=== PATIENT | female | born 1995 | race Caucasian/White ===

== ENCOUNTER 2018-05-22 12:45 | Emergency (ER) | payer MEDICAID ==
[2018-05-22] MEDS ORDERED: SODIUM CHLORIDE 0.9% 1,000 ML IV ONE (13:24)
[2018-05-22] MEDS ORDERED: ONDANSETRON 4 MG/2 ML VIAL IVP STA (13:24)
[2018-05-22 13:35] LABS: Basophils % (A) 0 %; Eosinophils % (A) 0 %; HCT 45.8 % (34.0-46.0); HGB 14.5 gm/dL (11.4-16.0); Lymphocytes % (A) 15 %; MCH 25.6 pg (25.0-35.0); MCHC 31.7 g/dL (31.0-37.0); MCV 80.7 fL (80.0-100.0); Mean Platelet Volume 7.2; Monocytes # (A) 0.5 k/uL (0-1.0); Monocytes % (A) 8 %; Neutrophils # (A) 5.3 k/uL (1.3-7.7); Neutrophils % (A) 75 %; Platelet Count 253 k/uL (150-450); RBC 5.68 m/uL (3.80-5.40); RDW 12.7 % (11.5-15.5); WBC 7.1 k/uL (3.8-10.6)
[2018-05-22 13:45] LABS: ALT 27 U/L (9-52); AST 16 U/L (14-36); Albumin 4.7 g/dL (3.5-5.0); Alkaline Phosphatase 89 U/L (38-126); Amylase 44 U/L (30-110); Anion Gap 14 mmol/L; Blood Urea Nitrogen 14 mg/dL (7-17); Calcium 9.7 mg/dL (8.4-10.2); Carbon Dioxide 25 mmol/L (22-30); Chloride 101 mmol/L (98-107); Glucose 157 mg/dL (74-99); Lipase 24 U/L (23-300); Potassium 3.4 mmol/L (3.5-5.1); Sodium 140 mmol/L (137-145); Total Bilirubin 0.5 mg/dL (0.2-1.3)
[2018-05-22] MEDS ORDERED: MORPHINE SULFATE 2 MG/ML SYRINGE IVP STA (13:56)
--- NOTE | 2018-05-22 14:39 | CT ---
EXAMINATION TYPE: CT abdomen pelvis w con DATE OF EXAM: 05/22/2018 COMPARISON: NONE HISTORY: 23-year-old female with bilateral lower quad pain TECHNIQUE: Contiguous axial scanning of the abdomen and pelvis following administration of 100 ml Iso boyd 300 IV contrast. Delayed images through the kidneys and coronal/sagittal reconstructions perform ed. CT DLP: 497.2 mGycm Automated exposure control for dose reduction was used. FINDINGS: Heart normal size without pericardial effusion. Lung bases clear without pleural effusion. No focal liver lesion or biliary ductal dilatation. Portal venous system is patent. Gallbladder, adrenal glands, kidneys, spleen, and pancreas appear within normal limits. No dilated small bowel, free fluid, or free air. Normal appendix. Numerous nonenlarged and borderline to mildly enlarged periportal lymph nodes are present throughout measuring up to 8 mm, refer to coronal images 28 through 32 for some reference examples. There is significant stool burden. Abdominal bowel loops in the lower abdomen and pelvis limits asses sment. Moderate circumferential wall thickening of the bladder. Uterus and both ovaries are visualized with follicular change. Small amount of cul-de-sac free fluid likely physiologic. Pelvic phlebolith. No pe lvic lymphadenopathy seen. Bones: No osseous destructive process. IMPRESSION: 1. NORMAL APPENDIX. 2. NUMEROUS NONENLARGED AND BORDERLINE TO MILDLY ENLARGED MESENTERIC LYMPH NODES MEASURING UP TO 8 MM MAY REPRESENT MESENTERIC ADENITIS. 3. MODERATE CIRCUMFERENTIAL BLADDER WALL THICKENING. CORRELATE TO EXCLUDE CYSTITIS. 4. TRACE CUL-DE-SAC FREE FLUID LIKELY PHYSIOLOGIC.
[2018-05-22 15:38] LABS: Appearance,Urine Clear (Clear); Bilirubin,Urine Negative (Negative); Blood,Urine Negative (Negative); Color,Urine Light Yellow; Glucose,Urine (UA) Negative (Negative); Ketones,Urine 3+ (Negative); Leukocyte Esterase,Urine Negative (Negative); Nitrite,Urine Negative (Negative); Protein,Urine Trace (Negative); Urobilinogen,Urine <2.0 mg/dL (<2.0)
[2018-05-22 15:42] LABS: Specific Gravity,Urine >1.050 (1.001-1.035)
--- NOTE | 2018-05-22 15:51 | ED ---
Abdominal Pain HPI - General Chief Complaint: Abdominal Pain Stated Complaint: Abd pain Time Seen by Provider: 05/22/18 13:10 Source: patient Mode of arrival: ambulatory Limitations: no limitations - History of Present Illness Initial Comments: 23-year-old female type 1 diabetes on insulin pump present today for chief complaint of diffuse abdominal pain. Patient states that about 2-3 days prior she had a gastroenteritis-like syndrome. She states she had vomiting as well as diarrhea. Patient states that since she has had decreased appetite. Patient states she had a day without vomiting or diarrhea however today she awoke with diffuse abdominal pain, she states the pain increases with any Movement this was concerning patient presents urgent care for evaluation. Remaining review of systems negative patient denies any fever, chills, night sweats, hematemesis, melena or hematochezia, urgency, frequency, dysuria, flank pain, back pain, headache, dizziness, chest pain, dyspnea. Patient states she is currently nauseous she states her blood glucose was 152 this a.m. she denies significant elevation. Patient states that 2-3 days of vomiting diarrhea she had low blood sugar readings. Last time patient she ate was 2 days prior patient presented initially to [facility], where she was sent to the emergency department after urinalysis revealed ketones.Upon arrival patient complaining of diffuse abdominal pain, unable to localize and nausea. VS WNL. - Related Data Home Medications Medication Instructions Recorded Confirmed INSULIN LISPRO (For Pump) [humaLOG 0.01 units SQ-PUMP CONTINUOUS 05/22/1810/03 (For Pump)] Previous Rx's Medication Instructions Recorded Ondansetron [Zofran ODT] 4 mg PO Q8HR PRN 5 Days #15 tab 05/22/18 Allergies Allergy/AdvReac Type Severity Reaction Status Date / Time bee venom protein (honey bee) Allergy Anaphylaxis Verified 05/22/18 13:27 Review of Systems ROS Statement: Those systems with pertinent positive or pertinent negative responses have been documented in the HPI. ROS Other: All systems not noted in ROS Statement are negative. Past Medical History Past Medical History: Diabetes Mellitus Additional Past Medical History / Comment(s): ovarian cysts History of Any Multi-Drug Resistant Organisms: None Reported Past Surgical History: Ear Surgery Past Psychological History: Anxiety, Depression Smoking Status: Never smoker Past Alcohol Use History: None Reported Past Drug Use History: None Reported General Exam - General Exam Comments Initial Comments: General: The patient is awake and alert, in no distress, and does not appear acutely ill. Eye: Pupils are equal, round and reactive to light, extra-ocular movements are intact. No nystagmus. There is normal conjunctiva bilaterally. No signs of icterus. Ears, nose, mouth and throat: There are moist mucous membranes and no oral lesions. Neck: The neck is supple, there is no tenderness or JVD. Cardiovascular: There is a regular rate and rhythm. No murmur, rub or gallop is appreciated. Respiratory: Lungs are clear to auscultation, respirations are non-labored, breath sounds are equal. No wheezes, stridor, rales, or rhonchi. Gastrointestinal: No noted diaphoresis, jaundice, pallor, protecting postures or squirming. Symmetrical pigmentation of abdomen without signs of inflammation. Umbilicus mildline, inverted without swelling. No dilated veins. Abdomen contour , no noted abdominal distention. No visible masses. No peristalsis, aortic pulsations, or ventral hernia. Bowel sounds audible in all 4 quadrants, unremarkable. Patient has tenderness to deep palpation diffusely no localization. No rigidity or guarding or rebound tenderness. Liver edge, not palpable. Spleen edge, right and left kidney not palpable. Superior bladder margin non-tender. Special Testing: NegativeRovsing, McBurney, Genesis, cutaneous hyperesthesia. Negative Heel Jar test No CVA tenderness. Digital rectal exam deferred. Negative gatica turners or cullens sign Musculoskeletal: Normal ROM, no tenderness. Strength 5/5. Sensation intact. Pulses equal bilaterally 2+. Neurological: A&O x 3. CN II-XII intact, There are no obvious motor or sensory deficits. Coordination appears grossly intact. Speech is normal. Skin: Skin is warm and dry and no rashes or lesions are noted. Psychiatric: Cooperative, appropriate mood & affect, normal judgment. Limitations: no limitations Course Vital Signs 05/22/18 05/22/18 05/22/18 12:57 14:41 16:29 Temperature 97.9 F 98.2 F Pulse Rate 105 H 94 87 Respiratory 18 18 16 Rate Blood Pressure 131/87 117/68 128/78 O2 Sat by Pulse 99 100 98 Oximetry Medical Decision Making - Medical Decision Making 23-year-old fellow type 1 diabetes. Patient's sugar 159. Ketones in urine, no glucose. Acetone negative. Gap 14. Patient improved pain with morphine. Abdominal exam did not reveal any signs of peritoneal irritation. CT the abdomen negative did reveal mesenteric adenitis. Possible findings of cystitis, no leukocyte esterase or nitrates upon urinalysis. Patient denies any significant elevation of blood glucose. At this time I feel the patient's ketones appear most likely to not eating for the past 2 days, there is no glucose. Gap within acceptable limits with (-) Acetone. Patient had improvement of symptoms. Repeat abdominal exam performed continued to be benign. At this time feel patient mesenteric adenitis due to gastroenteritis 2- 3 days prior most likely cause of patient's pain. Patient given strict return parameters for any worsening symptoms or persistent pain. Patient verbalized understanding. 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 Patient is to follow-up with primary care provider one to 2 days. Patient denies questions upon discharge. Patient given Zofran ODT to use for nausea, no pain medications given for home RX. Case was discussed with her provider Dr. Webb laboratory studies as well as patient's vital signs I discussed history of presenting illness,Past medical history and examination findings. He is agreeable patient's plan of discharge. Patient appeared well in no acute distress upon discharge. - Lab Data Result diagrams: 05/22/18 13:10 05/22/18 13:10 Lab Results 05/22/18 05/22/18 05/22/18 Range/Units 13:10 13:10 13:10 WBC 7.1 (3.8-10.6) k/uL RBC 5.68 H (3.80-5.40) m/uL Hgb 14.5 (11.4-16.0) gm/dL Hct 45.8 (34.0-46.0) % MCV 80.7 (80.0-100.0) fL MCH 25.6 (25.0-35.0) pg MCHC 31.7 (31.0-37.0) g/dL RDW 12.7 (11.5-15.5) % Plt Count 253 (150-450) k/uL Neutrophils % 75 % Lymphocytes % 15 % Monocytes % 8 % Eosinophils % 0 % Basophils % 0 % Neutrophils # 5.3 (1.3-7.7) k/uL Lymphocytes # 1.0 (1.0-4.8) k/uL Monocytes # 0.5 (0-1.0) k/uL Eosinophils # 0.0 (0-0.7) k/uL Basophils # 0.0 (0-0.2) k/uL Sodium 140 (137-145) mmol/L Potassium 3.4 L (3.5-5.1) mmol/L Chloride 101 (98-107) mmol/L Carbon Dioxide 25 (22-30) mmol/L Anion Gap 14 mmol/L BUN 14 (7-17) mg/dL Creatinine 0.60 (0.52-1.04) mg/dL Est GFR (CKD-EPI)AfAm >90 (>60 ml/min/1.73 sqM) Est GFR (CKD-EPI)NonAf >90 (>60 ml/min/1.73 sqM) Glucose 157 H (74-99) mg/dL Plasma Lactic Acid Juventino 1.7 (0.7-2.0) mmol/L Calcium 9.7 (8.4-10.2) mg/dL Total Bilirubin 0.5 (0.2-1.3) mg/dL AST 16 (14-36) U/L ALT 27 (9-52) U/L Alkaline Phosphatase 89 (38-126) U/L Total Protein 8.0 (6.3-8.2) g/dL Albumin 4.7 (3.5-5.0) g/dL Amylase 44 (30-110) U/L Lipase 24 (23-300) U/L Urine Color Urine Appearance (Clear) Urine pH (5.0-8.0) Ur Specific Regina (1.001-1.035) Urine Protein (Negative) Urine Glucose (UA) (Negative) Urine Ketones (Negative) Urine Blood (Negative) Urine Nitrite (Negative) Urine Bilirubin (Negative) Urine Urobilinogen (<2.0) mg/dL Ur Leukocyte Esterase (Negative) Urine HCG, Qual (Not Detectd) Acetone, Qual Negative (Negative) 05/22/18 05/22/18 Range/Units 15:30 15:30 WBC (3.8-10.6) k/uL RBC (3.80-5.40) m/uL Hgb (11.4-16.0) gm/dL Hct (34.0-46.0) % MCV (80.0-100.0) fL MCH (25.0-35.0) pg MCHC (31.0-37.0) g/dL RDW (11.5-15.5) % Plt Count (150-450) k/uL Neutrophils % % Lymphocytes % % Monocytes % % Eosinophils % % Basophils % % Neutrophils # (1.3-7.7) k/uL Lymphocytes # (1.0-4.8) k/uL Monocytes # (0-1.0) k/uL Eosinophils # (0-0.7) k/uL Basophils # (0-0.2) k/uL Sodium (137-145) mmol/L Potassium (3.5-5.1) mmol/L Chloride (98-107) mmol/L Carbon Dioxide (22-30) mmol/L Anion Gap mmol/L BUN (7-17) mg/dL Creatinine (0.52-1.04) mg/dL Est GFR (CKD-EPI)AfAm (>60 ml/min/1.73 sqM) Est GFR (CKD-EPI)NonAf (>60 ml/min/1.73 sqM) Glucose (74-99) mg/dL Plasma Lactic Acid Juventino (0.7-2.0) mmol/L Calcium (8.4-10.2) mg/dL Total Bilirubin (0.2-1.3) mg/dL AST (14-36) U/L ALT (9-52) U/L Alkaline Phosphatase (38-126) U/L Total Protein (6.3-8.2) g/dL Albumin (3.5-5.0) g/dL Amylase (30-110) U/L Lipase (23-300) U/L Urine Color Light Yellow Urine Appearance Clear (Clear) Urine pH 6.0 (5.0-8.0) Ur Specific Regina >1.050 H (1.001-1.035) Urine Protein Trace H (Negative) Urine Glucose (UA) Negative (Negative) Urine Ketones 3+ H (Negative) Urine Blood Negative (Negative) Urine Nitrite Negative (Negative) Urine Bilirubin Negative (Negative) Urine Urobilinogen <2.0 (<2.0) mg/dL Ur Leukocyte Esterase Negative (Negative) Urine HCG, Qual Not Detected (Not Detectd) Acetone, Qual (Negative) Disposition Clinical Impression: Mesenteric adenitis Disposition: HOME SELF-CARE Condition: Good Instructions (If sedation given, give patient instructions): Mesenteric Hedy nitis (ED) Additional Instructions: Please use medication as discussed. Please follow-up with family doctor in the next 2 days.. Please return to emergency room if the symptoms increase or worsen or for any other concerns. Prescriptions: Ondansetron [Zofran ODT] 4 mg PO Q8HR PRN 5 Days #15 tab PRN Reason: Nausea Is patient prescribed a controlled substance at d/c from ED?: No Referrals: Jacob Severino MD [Primary Care Provider] - 1-2 days Time of Disposition: 15:51
[2018-05-22 16:30] VITALS: BP 128/78; PULSE 87; RESP 16; TEMP 98.2
== END 2018-05-22 16:29 | disposition home or self-care (01) ==
LOC: EC 12:45
DX: I88.0 Nonspecific mesenteric lymphadenitis (principal); E10.9 Type 1 diabetes mellitus without complications; Z79.4 Long term (current) use of insulin; Z91.030 Bee allergy status
CPT/HCPCS: 36415; 80053; 82150; 82009; 83605; 83690; 85025; 81003; 81025; 74177; 99284; 96374; 96375; 96361; J2405; J2270; Q9967

== ENCOUNTER 2020-04-08 05:16 | Emergency (ER) | payer BC, MEDICAID ==
[2020-04-08 05:26] VITALS: RESP 16
[2020-04-08] MEDS ORDERED: METOCLOPRAMIDE 5 MG/ML 2 ML VIAL IVP STA (05:40)
[2020-04-08] MEDS ORDERED: SODIUM CHLORIDE 0.9% 1,000 ML IV ONE ×2 (05:40→06:34)
--- NOTE | 2020-04-08 05:44 | ED ---
Nausea/Vomiting/Diarrhea HPI - General Chief complaint: Nausea/Vomiting/Diarrhea Stated complaint: Vomiting Time Seen by Provider: 04/08/20 05:33 Source: patient, family Mode of arrival: ambulatory Limitations: no limitations - History of Present Illness Initial comments: This patient is 25-year-old woman who presents with complaint of nausea and vomiting. She states that this started tonight, and she has had probably 6 episodes of vomiting. No hematemesis or coffee-ground emesis. The patient had received the second Covid vaccination prior to the onset of symptoms. She states that after receiving the vaccine she developed some low-grade fevers and chills, bodyaches, then the nausea and vomiting. MD complaint: nausea, vomiting -: hour(s) Description of Vomiting: food contents, bilious Associated Abdominal Pain: No Radiation: none Severity scale (1-10): 0 Improves with: none Worsens with: none Context: other Associated Symptoms: myalgias, fever/chills - Related Data Home Medications Medication Instructions Recorded Confirmed INSULIN LISPRO (For Pump) [humaLOG 0.01 units SQ-PUMP CONTINUOUS 05/22/18 05/22/18 (For Pump)] Previous Rx's Medication Instructions Recorded Ondansetron [Zofran ODT] 4 mg PO Q8HR PRN 5 Days #15 tab 05/22/18 Metoclopramide [Reglan] 10 mg PO ACHS PRN #10 tab 04/08/20 Allergies Allergy/AdvReac Type Severity Reaction Status Date / Time bee venom protein (honey bee) Allergy Anaphylaxis Verified 04/08/20 05:21 Review of Systems ROS Statement: Those systems with pertinent positive or pertinent negative responses have been documented in the HPI. ROS Other: All systems not noted in ROS Statement are negative. Constitutional: Reports: fever, chills Respiratory: Denies: cough, dyspnea Cardiovascular: Denies: chest pain, palpitations, edema Gastrointestinal: Reports: abdominal pain, nausea, vomiting. Denies: diarrhea, constipation, hematemesis, melena, hematochezia Genitourinary: Denies: dysuria, hematuria Musculoskeletal: Reports: myalgia. Denies: back pain Skin: Denies: rash Past Medical History Past Medical History: Diabetes Mellitus Additional Past Medical History / Comment(s): ovarian cysts History of Any Multi-Drug Resistant Organisms: None Reported Past Surgical History: Ear Surgery Past Psychological History: Anxiety, Depression Smoking Status: Never smoker Past Alcohol Use History: None Reported Past Drug Use History: None Reported General Exam Limitations: no limitations General appearance: alert, in no apparent distress Head exam: Present: atraumatic, normocephalic Eye exam: Present: normal appearance. Absent: scleral icterus, conjunctival injection ENT exam: Present: normal oropharynx Neck exam: Present: normal inspection, full ROM Respiratory exam: Present: normal lung sounds bilaterally. Absent: respiratory distress, wheezes, rales, rhonchi, stridor Cardiovascular Exam: Present: normal rhythm, tachycardia, normal heart sounds. Absent: systolic murmur, diastolic murmur, rubs, gallop GI/Abdominal exam: Present: soft. Absent: distended, tenderness, guarding, rebound, rigid, mass Extremities exam: Present: normal inspection, normal capillary refill. Absent: pedal edema, calf tenderness Back exam: Present: normal inspection. Absent: CVA tenderness (R), CVA tenderness (L) Neurological exam: Present: alert Skin exam: Present: warm, dry, intact, normal color. Absent: rash Course Vital Signs 04/08/20 05:21 Temperature 100.0 F H Pulse Rate 124 H Respiratory 16 Rate Blood Pressure 120/81 O2 Sat by Pulse 98 Oximetry - Reevaluation(s) Reevaluation #1: 04/08/20 06:37 I discussed the labs with the patient, who wanted to give her own insulin based on her pumps sliding scale. Medical Decision Making - Lab Data Result diagrams: 04/08/20 05:48 04/08/20 05:48 Lab Results 04/08/20 04/08/20 Range/Units 05:48 05:48 WBC 14.4 H (3.8-10.6) k/uL RBC 4.95 (3.80-5.40) m/uL Hgb 12.9 (11.4-16.0) gm/dL Hct 38.6 (34.0-46.0) % MCV 78.0 L (80.0-100.0) fL MCH 26.0 (25.0-35.0) pg MCHC 33.4 (31.0-37.0) g/dL RDW 13.1 (11.5-15.5) % Plt Count 226 (150-450) k/uL MPV 7.7 Neutrophils % 93 % Lymphocytes % 3 % Monocytes % 3 % Eosinophils % 0 % Basophils % 0 % Neutrophils # 13.3 H (1.3-7.7) k/uL Lymphocytes # 0.5 L (1.0-4.8) k/uL Monocytes # 0.4 (0-1.0) k/uL Eosinophils # 0.0 (0-0.7) k/uL Basophils # 0.1 (0-0.2) k/uL Sodium 136 L (137-145) mmol/L Potassium 4.0 (3.5-5.1) mmol/L Chloride 104 (98-107) mmol/L Carbon Dioxide 25 (22-30) mmol/L Anion Gap 7 mmol/L BUN 13 (7-17) mg/dL Creatinine 0.72 (0.52-1.04) mg/dL Est GFR (CKD-EPI)AfAm >90 (>60 ml/min/1.73 sqM) Est GFR (CKD-EPI)NonAf >90 (>60 ml/min/1.73 sqM) Glucose 237 H (74-99) mg/dL Calcium 9.5 (8.4-10.2) mg/dL Acetone, Qual Negative (Negative) Disposition Clinical Impression: Nausea after vaccination, Hyperglycemia due to type 1 diabetes mellitus Disposition: HOME SELF-CARE Condition: Good Instructions (If sedation given, give patient instructions): Acute Nausea and Vomiting (ED) Prescriptions: Metoclopramide [Reglan] 10 mg PO ACHS PRN #10 tab PRN Reason: Vomiting Is patient prescribed a controlled substance at d/c from ED?: No Referrals: Jacob Severino MD [Primary Care Provider] - 1-2 days
[2020-04-08 06:15] LABS: Basophils # (A) 0.1 k/uL (0-0.2); Basophils % (A) 0 %; Eosinophils % (A) 0 %; HCT 38.6 % (34.0-46.0); HGB 12.9 gm/dL (11.4-16.0); Lymphocytes # (A) 0.5 k/uL (1.0-4.8); Lymphocytes % (A) 3 %; MCHC 33.4 g/dL (31.0-37.0); Mean Platelet Volume 7.7; Monocytes # (A) 0.4 k/uL (0-1.0); Monocytes % (A) 3 %; Neutrophils # (A) 13.3 k/uL (1.3-7.7); Neutrophils % (A) 93 %; Platelet Count 226 k/uL (150-450); RBC 4.95 m/uL (3.80-5.40); RDW 13.1 % (11.5-15.5); WBC 14.4 k/uL (3.8-10.6)
[2020-04-08 06:28] LABS: African American GFR (CKD) >90 (>60 ml/min/1.73 sqM); Anion Gap 7 mmol/L; Blood Urea Nitrogen 13 mg/dL (7-17); Calcium 9.5 mg/dL (8.4-10.2); Carbon Dioxide 25 mmol/L (22-30); Chloride 104 mmol/L (98-107); Glucose 237 mg/dL (74-99); Non-African American GFR(CKD) >90 (>60 ml/min/1.73 sqM); Sodium 136 mmol/L (137-145)
[2020-04-08] MEDS ORDERED: INSULIN REGULAR 100 UNIT/ML VIAL SQ STA (06:34)
[2020-04-08 07:52] VITALS: BP 128/75; PULSE 113; TEMP 100.2
== END 2020-04-08 07:51 | disposition home or self-care (01) ==
LOC: EC 05:16
DX: R11.0 Nausea (principal); R00.0 Tachycardia, unspecified; E10.65 Type 1 diabetes mellitus with hyperglycemia; Z96.41 Presence of insulin pump (external) (internal); Z91.030 Bee allergy status
CPT/HCPCS: 36415; 80048; 82009; 85025; 99283; 96374; 96361 ×2; J2765